=== PATIENT | male | born 1955 | race Caucasian/White ===

== ENCOUNTER 2024-05-30 17:26 | Emergency (ER) | payer MEDICARE ==
[~2024-05-30] VITALS: Ht 175.3 cm; Wt 69.4 kg
[2024-05-30] MEDS ORDERED: ACETAMINOPHEN 500 MG TABLET ONE (17:44)
[2024-05-30] MEDS: ACETAMINOPHEN 500 MG TABLET PO ONE (17:47)
[2024-05-30] MEDS ORDERED: IBUP-1955 PO (18:31)
[2024-05-30] MEDS ORDERED: OXYC-128 PO (18:31)
[2024-05-30 18:49] VITALS: BP 112/56; TEMP 98; O2SAT 100
== END 2024-05-30 18:49 | disposition home or self-care (01) ==
LOC: ER 17:26
DX: S92.312A Displaced fracture of first metatarsal bone, left foot, initial encounter for closed fracture (principal); F17.200 Nicotine dependence, unspecified, uncomplicated; Z79.899 Other long term (current) drug therapy; W18.39XA Other fall on same level, initial encounter; Y93.89 Activity, other specified; Y92.89 Other specified places as the place of occurrence of the external cause; Y99.8 Other external cause status
CPT/HCPCS: 73620; A4606; A4663; A9150